=== PATIENT | female | born 1985 | race Two or more races ===

== ENCOUNTER → 2024-09-25 | Emergency (ER) | payer OTHER ==
[~2024-09-25] VITALS: Ht 160 cm; Wt 92.1 kg
[~2024-09-25] MED LIST: CARBAMAZEPINE100 M1 PO; DICLOFENAC SODI75 MG PO; KETOROLAC TROMETHAMINE 60 MG VIAL IM ONE; TRAMADOL HCL 50 MG TABLET PO ONE
[2024-09-25 22:55] VITALS: BP 116/75; O2SAT 100
== END | disposition home or self-care (01) ==
LOC: ER 22:03
DX: S90.122A Contusion of left lesser toe(s) without damage to nail, initial encounter (principal); W20.8XXA Other cause of strike by thrown, projected or falling object, initial encounter; Y93.89 Activity, other specified; Y92.010 Kitchen of single-family (private) house as the place of occurrence of the external cause; Y99.9 Unspecified external cause status